=== PATIENT | male | born 1960 | race Caucasian/White ===

== ENCOUNTER 2020-06-25 16:58 | Inpatient (IN) | payer OTHER, SELFPAY ==
[~2020-06-25] VITALS: Ht 182.9 cm; Wt 88.0 kg
[2020-06-25 17:00] VITALS: BP_SYST 133
[2020-06-25] MEDS ORDERED: levETIRAcetam 1,000 MG IV BAG 100 ML IV ONE (17:30)
[2020-06-25 18:04] LABS: BASOPHILS % (AUTO) 0.4 % (0.0-2.0); HEMATOCRIT 42.4 % (36-54); HEMOGLOBIN 14.7 g/dL (14.0-18.0); LYMPHOCYTES # (AUTO) 1.1 K/uL (1.0-5.5); LYMPHOCYTES % (AUTO) 11.5 % (20.5-51.5); MEAN CORPUSCULAR HEMOGLOBIN 31 pg (27-31); MEAN CORPUSCULAR HGB CONC 35 % (32-36); MEAN CORPUSCULAR VOLUME 90 fL (79.0-98.0); MONOCYTES # (AUTO) 0.4 K/uL (0.0-1.0); MONOCYTES % (AUTO) 4.7 % (1.7-9.3); NEUTROPHILS % (AUTO) 83.4 % (40.0-70.0); PLATELET COUNT (AUTO) 241 K/uL (130-430); RED CELL DISTRIBUTION WIDTH 13.6 % (9.0-15.0); WHITE BLOOD COUNT (AUTO) 9.6 K/uL (4.8-10.8)
[2020-06-25 18:19] LABS: ANION GAP 10 (5-15); CALCIUM 9.4 mg/dL (8.4-11.0); CHLORIDE 92 mmol/L (98-107); CREATININE 1.02 mg/dL (0.55-1.30); GLUCOSE 126 mg/dL (70-99); POTASSIUM 4.3 mmol/L (3.5-5.1); SODIUM SERUM 124 mmol/L (136-145); UREA NITROGEN, BLOOD 11 mg/dL (8-21)
[2020-06-25 18:20] LABS: GFR AFRICAN AMERICAN 96 mL/min (>90)
[2020-06-25 18:25] LABS: ALANINE AMINOTRANSFERASE 36 U/L (12-78); ALBUMIN 4.4 g/dL (3.4-4.8); ASPARTATE AMINOTRANSFERASE 23 U/L (10-37); BILIRUBIN,DIRECT 0.3 mg/dL (0.0-0.3); TOTAL BILIRUBIN 0.5 mg/dL (0.0-1.0)
[2020-06-25 18:40] LABS: VALPROIC ACID < 3 ug/mL (50-100)
[2020-06-25] MEDS ORDERED: levETIRAcetam 500 MG in NS 100 ML IV ONE (19:00)
[2020-06-25] MEDS: NACL 0.9% 1,000 ML IV SCH (20:37)
[2020-06-25] MEDS ORDERED: NOR10 PO (20:50)
[2020-06-25] MEDS ORDERED: AMLO2.5T2 PO (20:50)
[2020-06-25] MEDS ORDERED: OLME40TA12 PO (20:50)
[2020-06-25] MEDS ORDERED: ESCI10TA PO (20:50)
[2020-06-25] MEDS ORDERED: METO25TA3 PO (20:50)
[2020-06-25] MEDS ORDERED: CAT.1 PO (20:50)
[2020-06-25 21:00] VITALS: BP_SYST 155
[2020-06-25 21:01] LABS: BILIRUBIN,URINE NEGATIVE (NEGATIVE); CLARITY/URINE CLEAR (CLEAR); COLOR,URINE YELLOW (YELLOW); GLUCOSE,URINE NEGATIVE (NEGATIVE); KETONES,URINE TRACE (NEGATIVE); LEUKOCYTE ESTERASE ,URINE NEGATIVE (NEGATIVE); NITRITE, URINE NEGATIVE (NEGATIVE); PH,URINE 5.5 (5.0-8.0); PROTEIN URINE NEGATIVE (NEGATIVE); UROBILINOGEN,URINE 0.2 (0.2-1.0)
[2020-06-25 21:04] LABS: BLOOD, URINE TRACE (NEGATIVE)
[2020-06-25 21:08] LABS: BACTERIA,URINE None Seen /HPF (None Seen); MUCUS,URINE None Seen /LPF (None Seen); RBC,URINE 0-3 /HPF (0-3); WBC,URINE NONE SEEN /HPF (0-3)
[2020-06-25 21:22] VITALS: BP_SYST 155
[2020-06-26] MEDS ORDERED: BANANA BAG 1 EA, FOLIC ACID 1 MG, THIAMINE HCL 100 MG, MAGNESIUM SULFATE 1 GM, MVI 10 M... IV SCH ×5 (07:30)
[2020-06-26] MEDS ORDERED: LORazepam 2 MG/ML VIAL IVP PRN (07:30)
[2020-06-26 08:00] VITALS: BP_SYST 128
[2020-06-26 08:38] LABS: BASOPHILS % (AUTO) 0.7 % (0.0-2.0); EOSINOPHILS % (AUTO) 0.6 % (0.0-4.0); HEMOGLOBIN 14.4 g/dL (14.0-18.0); LYMPHOCYTES # (AUTO) 1.7 K/uL (1.0-5.5); LYMPHOCYTES % (AUTO) 35.4 % (20.5-51.5); MEAN CORPUSCULAR HEMOGLOBIN 31 pg (27-31); MEAN CORPUSCULAR HGB CONC 34 % (32-36); MEAN CORPUSCULAR VOLUME 90 fL (79.0-98.0); MONOCYTES # (AUTO) 0.3 K/uL (0.0-1.0); MONOCYTES % (AUTO) 7.4 % (1.7-9.3); NEUTROPHILS # (AUTO) 2.6 K/uL (1.8-7.7); NEUTROPHILS % (AUTO) 55.9 % (40.0-70.0); PLATELET COUNT (AUTO) 237 K/uL (130-430); RED BLOOD CELL COUNT(AUTO) 4.66 MIL/uL (4.2-6.2); RED CELL DISTRIBUTION WIDTH 13.4 % (9.0-15.0); WHITE BLOOD COUNT (AUTO) 4.7 K/uL (4.8-10.8)
[2020-06-26 08:45] LABS: CREATININE 0.84 mg/dL (0.55-1.30); POTASSIUM 3.7 mmol/L (3.5-5.1)
[2020-06-26 08:50] LABS: ALBUMIN 3.9 g/dL (3.4-4.8); TOTAL BILIRUBIN 0.8 mg/dL (0.0-1.0)
[2020-06-26] MEDS ORDERED: ESCITALOPRAM OXALATE 10 MG TABLET PO SCH (09:00)
[2020-06-26] MEDS ORDERED: OLMESARTAN MEDOXOMIL 20 MG TABLET PO SCH (09:00)
[2020-06-26] MEDS ORDERED: levETIRAcetam 500 MG in NS 100 ML IV SCH (09:00)
[2020-06-26] MEDS: THIAMINE HCL 100 MG, MAGNESIUM SULFATE 1 GM in NS 100 ML IV SCH (09:13)
[2020-06-26] MEDS: FOLIC ACID 1 MG, MVI 10 ML in NACL 0.9% 1,000 ML IV SCH (09:14)
[2020-06-26] MEDS: amLODIPine BESYLATE 10 MG TABLET PO SCH (09:15)
[2020-06-26] MEDS: cloNIDine HCL 0.1 MG TABLET PO SCH ×3 (09:16→21:03)
[2020-06-26] MEDS: LOSARTAN POTASSIUM 50 MG TABLET (COZAAR) PO SCH (09:27)
[2020-06-26] MEDS: METOPROLOL SUCCINATE 25 MG TAB.SR.24H (TOPROL XL) PO SCH (09:28)
[2020-06-26] MEDS: CITALOPRAM HYDROBROMIDE 20 MG TABLET PO SCH (09:38)
[2020-06-26] MEDS: levETIRAcetam 1,000 MG in NS 100 ML IV SCH ×2 (09:39→21:07)
[2020-06-26 11:35] LABS: BARBITURATE, URINE NEGATIVE (NEG <=200); BENZODIAZEPINE, URINE NEGATIVE (NEG <=150); CANNABINOID, URINE NEGATIVE (NEG <=50); COCAINE, URINE NEGATIVE (NEG <=150); METHAMPHETAMINES SCREEN,URINE NEGATIVE (NEG <=500); OPIATE, URINE NEGATIVE (NEG <=100); PHENCYCLIDINE SCREEN,URINE NEGATIVE (NEG <=25); UR TRICYCLIC ANTIDEPRESSANTS NEGATIVE (NEG <=300); URINE AMPHETAMINE NEGATIVE (NEG <=500); URINE METHADONE NEGATIVE (NEG <=200); URINE OXYCODONE SCREEN NEGATIVE (NEG <=100); URINE PROPOXYPHENE SCREEN NEGATIVE (NEG <=300)
[2020-06-26] MEDS: NACL 0.9% 1,000 ML IV SCH (11:40)
[2020-06-26 12:09] VITALS: BP_SYST 130
[2020-06-26 16:05] VITALS: BP_SYST 132
[2020-06-26 20:00] VITALS: BP_SYST 143
[2020-06-27 00:02] VITALS: BP_SYST 122
[2020-06-27 07:18] LABS: BASOPHILS % (AUTO) 0.7 % (0.0-2.0); HEMATOCRIT 37.2 % (36-54); LYMPHOCYTES # (AUTO) 1.9 K/uL (1.0-5.5); LYMPHOCYTES % (AUTO) 48.8 % (20.5-51.5); MEAN CORPUSCULAR HEMOGLOBIN 31 pg (27-31); MEAN CORPUSCULAR HGB CONC 35 % (32-36); MEAN CORPUSCULAR VOLUME 90 fL (79.0-98.0); MONOCYTES # (AUTO) 0.3 K/uL (0.0-1.0); MONOCYTES % (AUTO) 7.2 % (1.7-9.3); NEUTROPHILS # (AUTO) 1.7 K/uL (1.8-7.7); NEUTROPHILS % (AUTO) 42.3 % (40.0-70.0); PLATELET COUNT (AUTO) 195 K/uL (130-430); RED BLOOD CELL COUNT(AUTO) 4.13 MIL/uL (4.2-6.2); RED CELL DISTRIBUTION WIDTH 13.4 % (9.0-15.0); WHITE BLOOD COUNT (AUTO) 3.9 K/uL (4.8-10.8)
[2020-06-27 08:00] VITALS: BP_SYST 120
[2020-06-27 08:08] LABS: ALBUMIN 3.4 g/dL (3.4-4.8); CALCIUM 8.5 mg/dL (8.4-11.0); CREATININE 0.81 mg/dL (0.55-1.30); PHOSPHORUS 3.3 mg/dL (2.7-4.5); POTASSIUM 3.5 mmol/L (3.5-5.1); TOTAL BILIRUBIN 0.7 mg/dL (0.0-1.0)
[2020-06-27] MEDS ORDERED: CITALOPRAM HYDROBROMIDE 20 MG TABLET ONE (08:12)
[2020-06-27] MEDS: LOSARTAN POTASSIUM 50 MG TABLET (COZAAR) PO SCH (08:23)
[2020-06-27] MEDS: CITALOPRAM HYDROBROMIDE 20 MG TABLET PO SCH (08:23)
[2020-06-27] MEDS: amLODIPine BESYLATE 10 MG TABLET PO SCH (08:24)
[2020-06-27] MEDS: METOPROLOL SUCCINATE 25 MG TAB.SR.24H (TOPROL XL) PO SCH (08:24)
[2020-06-27] MEDS: cloNIDine HCL 0.1 MG TABLET PO SCH (08:24)
[2020-06-27] MEDS: NACL 0.9% 1,000 ML IV SCH (08:49)
[2020-06-27] MEDS: levETIRAcetam 1,000 MG in NS 100 ML IV SCH (08:50)
[2020-06-27] MEDS ORDERED: LEVE500T53 PO (09:17)
[2020-06-27 10:22] VITALS: BP_SYST 113
[2020-06-27] MEDS: THIAMINE HCL 100 MG, MAGNESIUM SULFATE 1 GM in NS 100 ML IV SCH (10:35)
[2020-06-27] MEDS: FOLIC ACID 1 MG, MVI 10 ML in NACL 0.9% 1,000 ML IV SCH (10:35)
== END 2020-06-27 12:50 | disposition home or self-care (01) | DRG 101 ==
LOC: SED 16:58 → SMU 18:56 → STU 06-26 23:13
PROVIDERS: ADMIT Internal Medicine Hospice and Palliative Medicine; ATTEND Internal Medicine Hospice and Palliative Medicine
DX: G40.509 Epileptic seizures related to external causes, not intractable, without status epilepticus (principal); E87.1 Hypo-osmolality and hyponatremia; I10 Essential (primary) hypertension; F10.20 Alcohol dependence, uncomplicated; Z86.73 Personal history of transient ischemic attack (TIA), and cerebral infarction without residual deficits; Z87.828 Personal history of other (healed) physical injury and trauma; Z20.828 Contact with and (suspected) exposure to other viral communicable diseases
CPT/HCPCS: 36415; 70450-TC; 76376; 80048; 80053; 80076; 80164-TC; 80307; 81000-TC; 83735-TC; 83930-TC; 83935-TC; 84100-TC; 84302-TC; 84443-TC; 84484; 85025; 93005; 95816; 96365; 99285; G0378; J1953; J3411; J3475; J3490; J7030

== ENCOUNTER 2021-11-22 13:09 | Emergency (ER) | payer OTHER, MEDICAID ==
[~2021-11-22] VITALS: Ht 177.8 cm; Wt 92.5 kg
[~2021-11-22 13:09] MED LIST: AMLO2.5T2 PO; CAT.1 PO; ESCI10TA PO; LEVE500T21 PO; METO25TA3 PO; NOR10 PO; OLME40TA12 PO
[2021-11-22 13:15] VITALS: BP_SYST 149
[2021-11-22 13:33] VITALS: BP_SYST 149
[2021-11-22] MEDS ORDERED: HYDROcodone/ACETAMIN 10-325 MG TAB PO ONE (13:45)
[2021-11-22] MEDS ORDERED: MORPHINE 4 MG INJ. 4 MG/ML VIAL IM ONE (15:45)
[2021-11-22] MEDS ORDERED: BACITRACIN 1 GM OINT TP ONE (16:04)
[2021-11-22] MEDS ORDERED: HYDR-3917 PO (16:28)
[2021-11-22] MEDS ORDERED: IBUP800T54 PO (16:28)
== END 2021-11-22 16:16 | disposition home or self-care (01) ==
LOC: SED 13:09
DX: S42.022A Displaced fracture of shaft of left clavicle, initial encounter for closed fracture (principal); S52.501A Unspecified fracture of the lower end of right radius, initial encounter for closed fracture; S52.611A Displaced fracture of right ulna styloid process, initial encounter for closed fracture; W22.8XXA Striking against or struck by other objects, initial encounter; Y93.89 Activity, other specified; Y92.89 Other specified places as the place of occurrence of the external cause; Y99.8 Other external cause status
CPT/HCPCS: 29125; 71045; 71100; 73000; 73110; 73130; 96372; 99284; J2270